=== PATIENT | female | born 1975 | race American Indian/Alaskan Native ===

== ENCOUNTER 2018-04-24 06:47 | Day surgery (SDC) | payer OTHER ==
[2015-01-19 09:47] VITALS: BMI 53.8
[2018-04-24] MEDS ORDERED: Lactated Ringer's 1,000 ML IV ONE (08:06)
[2018-04-24] MEDS ORDERED: Propofol 10 mg/ml Inj (20 ML) ONE (08:06)
[2018-04-24] MEDS ORDERED: Lidocaine Hydrochloride 10 ML INJ ONE (08:06)
[2018-04-24 08:33] VITALS: O2SAT 100
[2018-04-24] MEDS ORDERED: ePHEDrine 50 mg/ml Inj ONE (08:41)
[2018-04-24] MEDS ORDERED: Etomidate 20 mg/10ml Inj IV ONE (09:03)
[2018-04-24 12:55] VITALS: TEMP 96
[2018-04-24 13:03] VITALS: BP 121/68; PULSE 65; RESP 18
== END 2018-04-24 11:00 | disposition home or self-care (01) ==
LOC: C.ENDO 06:47
PROVIDERS: ATTEND Internal Medicine
DX: Z80.0 Family history of malignant neoplasm of digestive organs (principal); K57.30 Diverticulosis of large intestine without perforation or abscess without bleeding; K64.8 Other hemorrhoids; K29.70 Gastritis, unspecified, without bleeding
CPT/HCPCS: 43239; 45378; 84703; 88305; J2001; J2704; J3010; J7120